=== PATIENT | male | born 1965 | race Caucasian/White ===

== ENCOUNTER 2017-10-15 05:56 | Emergency (ER) | payer SELFPAY ==
[~2017-10-15] VITALS: Ht 182.9 cm; Wt 81.6 kg
--- NOTE | 2017-10-15 06:15 | NUR ---
BB SON; ABCESS ON RIGHT HIP X 3 DAYS. PT AOX3 RR EVEN AND UNLABORED. NO SOB NOTED. NAD NOTED. NO NVD AT THIS TIME. PT GOWNED AND PLACED ON MONITOR WAITING FOR MD MERCADO.
--- NOTE | 2017-10-15 06:24 | NUR ---
DR. MARIE AT BEDSIDE FOR EVAL.
[2017-10-15] MEDS ORDERED: PIPERACILLIN /TAZOBACTAM 3.375 G in IV D5W 50 ML IV ONE (06:30)
[2017-10-15] MEDS ORDERED: IV NS 0.9% 1,000 ML BAG IV ONE (06:30)
[2017-10-15] MEDS ORDERED: VANCOMYCIN 1 GM in IV D5W 250 ML IV ONE (06:30)
[2017-10-15] MEDS ORDERED: PIPERACILLIN /TAZOBACTAM 3.375 G VIAL IV ONE (06:52)
[2017-10-15 07:16] LABS: BASOPHILS % (AUTO) 0.2 % (0.0-2.0); EOSINOPHILS % (AUTO) 1.1 % (0.0-6.0); HEMATOCRIT 44 % (39-51); HEMOGLOBIN 14.8 g/dL (13.5-17.5); LYMPHOCYTES # (AUTO) 1.5 /CMM (0.8-4.8); LYMPHOCYTES % (AUTO) 10.6 % (20.0-44.0); MEAN CORPUSCULAR HGB CONC 34 g/dl (31.0-36.0); MEAN CORPUSCULAR VOLUME 83 fL (80-96); MONOCYTES # (AUTO) 1.2 /CMM (0.1-1.30); MONOCYTES % (AUTO) 8.4 % (2.0-12.0); NEUTROPHILS # (AUTO) 11.3 /CMM (1.8-8.9); NEUTROPHILS % (AUTO) 79.7 % (43.0-81.0); PLATELET COUNT (AUTO) 340 /CMM (150-450); RED BLOOD CELL COUNT(AUTO) 5.27 MIL/uL (4.5-6.0); WHITE BLOOD COUNT (AUTO) 14.1 K/uL (4.3-11.0)
--- NOTE | 2017-10-15 07:27 | NUR ---
REPORT GIVEN TO GAURAV LI FOR SUSIE.
[2017-10-15 07:28] LABS: ALANINE AMINOTRANSFERASE 28 U/L (12-78); ALBUMIN 3.3 g/dL (3.4-5.0); ALKALINE PHOSPHATASE 96 U/L (46-116); ASPARTATE AMINOTRANSFERASE 30 U/L (15-37); BILIRUBIN,DIRECT 0.2 mg/dL (0.0-0.2); BILIRUBIN,TOTAL 0.7 mg/dL (0.2-1.0); CARBON DIOXIDE 28 mmol/L (21-32); CHLORIDE 95 mmol/L (98-107); CREATININE 0.9 mg/dL (0.6-1.3); GLUCOSE 83 mg/dL (74-106); POTASSIUM 3.6 mmol/L (3.5-5.1); SODIUM SERUM 131 mmol/L (136-145); TOTAL PROTEIN, SERUM 9.1 g/dL (6.4-8.2); TROPONIN I < 0.017 ng/mL (0.00-0.056); UREA NITROGEN, BLOOD 15 mg/dL (7-18)
--- NOTE | 2017-10-15 07:28 | NUR ---
CALLED PHARM FOR FRANCISCO PHILIPPE.
[2017-10-15 07:32] LABS: INR 1.1 (0.87-1.13)
[2017-10-15] MEDS ORDERED: IOHEXOL-300 100 ML VIAL IV ONE (07:39)
[2017-10-15] MEDS ORDERED: CT SWABBABLE VALVE TRANS SET 1 EA INFUS.SET MC ONE (07:39)
[2017-10-15] MEDS ORDERED: IV NS 0.9% 500 ML IV ONE (07:39)
--- NOTE | 2017-10-15 07:39 | NUR ---
VANCOMYCIN 1GM IVP GIVEN LEFT FA 20G ENDTIME 08, PT TOLERATING MEDICATION NO ASE
--- NOTE | 2017-10-15 07:43 | NUR ---
PT TO CT.
--- NOTE | 2017-10-15 08:13 | NUR ---
PATIENT IS BACK FROM CT. NOTED IV NOT IN PLACED, NO BLOOD RETURN NOTED. PATIENT AND SIGNIFICANT OTHER REFUSED ANOTHER IV INSERTION AT THIS TIME.
[2017-10-15] MEDS ORDERED: LIDOCAINE 1%-EPI 1:100,000 20 ML VIAL ONE (08:32)
--- NOTE | 2017-10-15 08:47 | NUR ---
PATIENT STRONGLY REFUSED INCISION AND DRAINAGE BY MD MARIE. VERBALIZED WANTING TO GO AMA
--- NOTE | 2017-10-15 08:55 | NUR ---
Patient does not wish to proceed with medical care recommended by Dr. PAULSON. Patient given information related to possible complications, up to and including , which could occur as a result of leaving the hospital at this time. Patient verbalizes understanding of risks involved due to leaving against medical advice. Patient REFUSED TO SIGN AMA
[2017-10-15 08:56] VITALS: BP 130/78
[2017-10-15] MEDS ORDERED: LIDOCAINE HCL/EPINEPHRINE/PF 30 ML VIAL TP ONE (09:00)
== END 2017-10-15 08:58 | disposition home or self-care (01) ==
LOC: ER 06:02
DX: L02.415 Cutaneous abscess of right lower limb (principal); L03.317 Cellulitis of buttock; F19.10 Other psychoactive substance abuse, uncomplicated; Z86.19 Personal history of other infectious and parasitic diseases
CPT/HCPCS: 36415; 71045-TC; 73701-TC; 80048-TC; 80076-TC; 83605-TC; 84484-TC; 85025-TC; 85730-TC; 87040-TC; A4606; A6402; A6403; A6407; J2543; J3370; J3490; J7030; J7040; J7060; Q9967; Z7610

== ENCOUNTER 2018-08-08 11:07 | Emergency (ER) | payer SELFPAY ==
[~2018-08-08] VITALS: Ht 182.9 cm; Wt 91.2 kg
--- NOTE | 2018-08-08 11:25 | NUR ---
W[employer]EL 60 "found sitting in passenger side of the car out/agonal breathingneedle stuck in arm. Friend gave him Narcan He was already awake on arrival. on room air, breathing evenly and unlabored. Connected to the monitor and pulse ox. kept comfortable, will continue to monitor accordingly.
[2018-08-08] MEDS ORDERED: ONDANSETRON HCL/PF 4 MG/2 ML VIAL ONE (11:57)
[2018-08-08] MEDS ORDERED: IV NS 0.9% 1,000 ML BAG IV ONE (12:00)
[2018-08-08] MEDS ORDERED: ONDANSETRON HCL/PF 4 MG/2 ML VIAL IVP ONE (12:00)
[2018-08-08 12:03] LABS: BASOPHILS % (AUTO) 0.6 % (0.0-2.0); EOSINOPHILS % (AUTO) 3.6 % (0.0-6.0); HEMATOCRIT 43 % (39-51); HEMOGLOBIN 14.6 g/dL (13.5-17.5); LYMPHOCYTES # (AUTO) 0.5 /CMM (0.8-4.8); LYMPHOCYTES % (AUTO) 8.6 % (20.0-44.0); MEAN CORPUSCULAR HGB CONC 34 g/dl (31.0-36.0); MEAN CORPUSCULAR VOLUME 89 fL (80-96); MONOCYTES # (AUTO) 0.7 /CMM (0.1-1.30); MONOCYTES % (AUTO) 10.8 % (2.0-12.0); NEUTROPHILS # (AUTO) 4.8 /CMM (1.8-8.9); NEUTROPHILS % (AUTO) 76.4 % (43.0-81.0); PLATELET COUNT (AUTO) 236 /CMM (150-450); RED BLOOD CELL COUNT(AUTO) 4.82 MIL/uL (4.5-6.0); WHITE BLOOD COUNT (AUTO) 6.3 K/uL (4.3-11.0)
[2018-08-08 12:03] LABS: ABG BASE EXCESS 2.2 mmol/L; ABG OXYGEN SATURATION 83.8 % (92.0-98.5); ABG PCO2 48.5 mmHg (35.0-45.0); ABG PH 7.382 (7.350-7.450); ABG PO2 51.5 mmHg (75.0-100.0); AaDO2 40.2 mmHg; COHb 3.3 % (0.5-1.5); MetHb 0.4 % (0.0-1.5); O2Hb 80.7 % (94.0-97.0); SITE, ABG Right Radial; VENT MODE, BG RA
[2018-08-08 12:08] LABS: CALCIUM, SERUM 8.3 mg/dL (8.5-10.1); CREATININE 0.7 mg/dL (0.6-1.3); POTASSIUM 3.1 mmol/L (3.5-5.1)
[2018-08-08 12:14] LABS: ALBUMIN 3.4 g/dL (3.4-5.0); BILIRUBIN,DIRECT 0.4 mg/dL (0.0-0.2); BILIRUBIN,TOTAL 1.2 mg/dL (0.2-1.0); TOTAL PROTEIN, SERUM 7.6 g/dL (6.4-8.2)
--- NOTE | 2018-08-08 12:16 | NUR ---
urine collected and sent to lab.
--- NOTE | 2018-08-08 19:19 | NUR ---
endorsed to next shift GAURAV veronica for sumit.
--- NOTE | 2018-08-08 20:18 | NUR ---
IV removed. Catheter intact and site benign. Pressure and 4x4 applied to site. No bleeding noted.
--- NOTE | 2018-08-08 20:18 | NUR ---
Patient given written and verbal discharge instructions. Patient verbalizes understanding of instructions. Patient is ambulatory with steady gait. Refuses offer of alf placement. Patient given list of available shelters in surrounding area.
[2018-08-08 20:29] VITALS: BP 156/95
== END 2018-08-08 20:30 | disposition home or self-care (01) ==
LOC: ER 11:09
DX: T40.1X1A Poisoning by heroin, accidental (unintentional), initial encounter (principal); R91.1 Solitary pulmonary nodule; I51.7 Cardiomegaly; F17.200 Nicotine dependence, unspecified, uncomplicated; Z87.19 Personal history of other diseases of the digestive system; Y92.89 Other specified places as the place of occurrence of the external cause
CPT/HCPCS: 36415; 36600 ×2; 71045; 80048; 80076; 82803; 83690; 84484; 85025; 93005; 96374; 99284; J2405; J7030